=== PATIENT | female | born 1990 | race Caucasian/White ===

== ENCOUNTER 2017-11-06 10:24 | Outpatient (CLI) | payer BC, MEDICAID ==
--- NOTE | 2017-11-06 11:10 | Non Stress Test Report ---
Non Stress Test Datetime Report Generated by CPN: 11/06/2017 11:10 DEMOGRAPHIC EGA NST: 40.0 INDICATION Indication for Study: Ordered by Provider Indication for Study (NST) Other: term VITAL SIGNS Temperature - NST: 98.6 Pulse - NST: 90 RESP - NST: 16 NBPSYS NST: 130 NBPDIA NST: 85 MONITORING Monitor Explained: Monitor Explained; Test Explained; Patient Verbalized Understanding Time on Monitor: 11/06/2017 10:35 Time off Monitor: 11/06/2017 11:02 NST Duration: 27 NST INTERVENTIONS NST Interventions: PO Hydration; Reposition Patient Physician Notified NST: Dr Josué BABY A: [id number] BABY A Movement : Present Contraction Frequency : occassional FHR Baseline : 150 Accelerations : 15X15 Decelerations : None Variability : Moderate 6-25bpm NST Review: Meets Criteria for Reactive NST NST Results: Reactive NST REPORT Report Trigger: Send Report
== END 2017-11-06 11:02 | disposition home or self-care (01) ==
LOC: LC 10:24
PROVIDERS: ATTEND Obstetrics & Gynecology
PROC: 4A1HXCZ Monitoring of Products of Conception, Cardiac Rate, External Approach (ICD-10-PCS; principal; 2017-11-06)
DX: O48.0 Post-term pregnancy (principal); Z3A.40 40 weeks gestation of pregnancy
CPT/HCPCS: 59025

== ENCOUNTER 2017-11-08 01:49 | Inpatient (IN) | payer MEDICAID ==
[2017-11-08 02:07] LABS: APPEARANCE,URINE CLEAR; BILIRUBIN,URINE NEGATIVE (NEGATIVE); COLOR,URINE YELLOW; GLUCOSE, URINE NEGATIVE (NEGATIVE); KETONES,URINE 20 mg/dL (NEGATIVE); LEUKOCYTE ESTERASE,URINE NEGATIVE (NEGATIVE); NITRITE,URINE NEGATIVE (NEGATIVE); PROTEIN,URINE NEGATIVE (NEGATIVE); UROBILINOGEN,URINE NEGATIVE mg/dL (<2.0)
[2017-11-08 02:27] LABS: URINE AMPHETAMINES SCREEN NEGATIVE; URINE BARBITURATES SCREEN NEGATIVE; URINE BENZODIAZEPINES SCREEN NEGATIVE; URINE COCAINE SCREEN NEGATIVE; URINE MARIJUANA (THC) SCREEN NEGATIVE; URINE METHADONE SCREEN NEGATIVE; URINE PHENCYCLIDINE SCREEN NEGATIVE
[2017-11-08] MEDS ORDERED: RINGERS SOLUTION,LACTATED 1,000 ML IV ONE (04:02)
[2017-11-08] MEDS ORDERED: RINGERS SOLUTION,LACTATED 1,000 ML IV PRN (04:04)
[2017-11-08 04:50] LABS: ABSOLUTE LYMPHOCYTES (AUTO) 1.7 10^3/uL (0.5-4.7); ABSOLUTE MONOCYTES (AUTO) 0.7 10^3/uL (0.1-1.4); BASOPHILS % (AUTO) 0.1 % (0-2); EOSINOPHILS % (AUTO) 0.1 % (0-6); HEMOGLOBIN 11.7 g/dL (12.0-15.5); LYMPHOCYTES % (AUTO) 11.1 % (13-45); MEAN CORPUSCULAR HEMOGLOBIN 28.3 pg (27.0-33.4); MEAN CORPUSCULAR HGB CONC 33.4 g/dL (32.0-36.0); MEAN CORPUSCULAR VOLUME 85 fl (80-97); MONOCYTES % (AUTO) 4.4 % (3-13); PLATELET COUNT 247 10^3/uL (150-450); RED BLOOD COUNT 4.13 10^6/uL (3.72-5.28); RED CELL DISTRIBUTION WIDTH 14.3 % (11.5-14.0); SEGMENTED NEUTROPHILS % (AUTO) 84.3 % (42-78); TOTAL CELLS COUNTED % (AUTO) 100 %; WHITE BLOOD COUNT 15.5 10^3/uL (4.0-10.5)
[2017-11-08] MEDS ORDERED: LIDOCAINE 1% INJ-PF (10 MG/ML) 30 ML SDV ONE (05:52)
[2017-11-08] MEDS ORDERED: OXYTOCIN/NORMAL SALINE 20 UNIT/1,000 ML RTUINJ ONE (05:52)
[2017-11-08] MEDS ORDERED: MISOPROSTOL 0.2 MG TABLET ONE (05:52)
--- NOTE | 2017-11-08 06:02 | Admission Physical ---
Datetime Report Generated by CPN: 11/08/2017 06:01 CURRENT ADMISSION Chief Complaint: Uterine Contractions Indication for Induction: Not Applicable; Postterm; Macrosomia Admit Impression : Term, Intrauterine Admit Plan: Admit to Unit; Initiate Labor Protocol Admit Plan- Other: GBS negative Rh Negative ALLERGIES Medication Allergies: No Medication Allergies: No Known Drug Allergies (11/08/2017) Latex: No Latex Allergies Food Allergies: no Environmental Allergies: no OBSTETRICAL HISTORY EDC: 11/06/2017 00:00 : 4 Para: 2 Term: 2 : 0 SAB: 1 IAB: 0 Ectopic: 0 Livin Cesareans: 0 VBACs: 0 Multiple Births: 0 Gestational Diabetes: No Rh Sensitization: No Incompetent Cervix: No TINO: No Infertility: No ART Treatment: No Uterine Anomaly: No IUGR: No Hx Previous C/S: No Macrosomia: No Hx Loss/Stillborn: No PIH: No Hx : No Placenta Previa/Abruption: No Depression/PP Depression: No PTL/PROM: No Post Hemorrhage: No Current Procedures: Ultrasound Obstetrical History Comments: G1: G2: G3: G4: current SEE RECORDS Alcohol: No Marijuana : No Cocaine: No Other Illicit Drugs: No Cigarettes: Never Smoker. 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 Operator Surgery: No Heart Disease: No Hosp/Surgery: No Autoimmune Disorder: No Anesthetic Complications: No Kidney Disease: No Abnormal Pap Smear: Yes Neuro/Epilepsy: No Psychiatric Disorders: No Other Medical Diseases: No Hepatitis/Liver Disease: No Significant Family History: No Varicosities/Phlebitis: No Trauma/Violence : No Thyroid Dysfunction: No Medical History Comments: hpv INFECTIOUS HISTORY Gonorrhea: No Genital Herpes: Yes Chlamydia: No Tuberculosis: No Syphilis: No Hepatitis: No HIV/AIDS Exposure: No Rash or Viral Illness: No HPV: Yes Infectious History Comments: oral hsv PHYSICAL EXAM General: Normal HEENT: Normal Neurologic: Normal Thyroid: Normal Heart: Normal Lungs: Normal Breast: Normal Back: Normal Abdomen: Normal Genitourinary Exam: Normal Extremities: Normal DTRs: Normal Pelvic Type: Adequate VAGINAL EXAM Dilatation: 9 Effacement: 90 Station: -1 Contraction Comments: q 2 MEMBRANES Pooling: Positive Membranes: Ruptured Amniotic Fluid Color: Clear FETUS A EGA: 40.2 Monitoring: External US FHR- Baseline: 145 Variability: Moderate 6-25bpm Accelerations: 15X15 Decelerations: None FHR Category: Category I Estimated Weight (gm): 3900 Presentation: Vertex PLANS FOR LABOR AND DELIVERY Labor and Delivery: None Pain Management: None Feeding Preference: Breast Benefit of Breast Feed Discussed: Yes Circumcision: N/A INFORMED CONSENT Signature: with User ID: [email or web address]
[2017-11-08] MEDS ORDERED: NA PHOS,M-B/NA PHOS,DI-BA (ADULT) 133 ML ENEMA PR PRN (06:31)
[2017-11-08] MEDS ORDERED: DIPH/PERTUSS(ACELL)/TETANUS VAC/PF 0.5 ML SYR (>=10YO) IM PRN (06:31)
[2017-11-08] MEDS ORDERED: DIPHENHYDRAMINE HCL 25 MG CAPSULE PO PRN (06:31)
[2017-11-08] MEDS ORDERED: PROMETHAZINE HCL 25 MG TABLET PO PRN (06:31)
[2017-11-08] MEDS ORDERED: ACETAMINOPHEN WITH CODEINE #3 TABLET PO PRN ×2 (06:31)
[2017-11-08] MEDS ORDERED: PROMETHAZINE HCL 25 MG SUPP.RECT PR PRN (06:31)
[2017-11-08] MEDS ORDERED: MAGNESIUM HYDROXIDE SUSP 30 ML UDCUP PO PRN (06:31)
[2017-11-08] MEDS ORDERED: OXYTOCIN/NORMAL SALINE 20 UNIT/1,000 ML RTUINJ IV PRN (06:31)
[2017-11-08] MEDS ORDERED: BENZOCAINE/MENTHOL AEROSOL SPRAY 56 ML TOP PRN (06:31)
[2017-11-08] MEDS ORDERED: ACETAMINOPHEN 650 MG SUPP.RECT PR PRN (06:31)
[2017-11-08] MEDS ORDERED: MEASLES,MUMPS&RUBELLA VACC/PF 0.5 ML VIAL SUBCUT PRN (06:31)
[2017-11-08] MEDS ORDERED: PSEUDOEPHEDRINE HCL 30 MG TABLET PO PRN (06:31)
[2017-11-08] MEDS ORDERED: PROMETHAZINE HCL INJ 25 MG/1 ML VIAL IV PRN (06:31)
[2017-11-08] MEDS ORDERED: DIBUCAINE 1% OINTMENT 28 GM TP PRN (06:31)
[2017-11-08] MEDS ORDERED: ZOLPIDEM TARTRATE 5 MG TABLET PO PRN (06:31)
[2017-11-08] MEDS ORDERED: GLYCERIN/WITCH HAZEL LEAF 1 EACH MED..PAD TP PRN (06:31)
[2017-11-08 07:14] LABS: ARTERIAL BLOOD BASE EXCESS -2.2 mmol/L; ARTERIAL BLOOD H2CO3 1.05 mmol/L (1.05-1.35); ARTERIAL BLOOD HCO3 21.6 mmol/L (20-26); ARTERIAL BLOOD O2 SATURATION 68.5 % (94-98); ARTERIAL BLOOD PCO2 34.8 mmHg (35-45); ARTERIAL BLOOD PH 7.41 (7.35-7.45); ARTERIAL BLOOD TOTAL CO2 22.7 mmol/L (21-25)
[2017-11-08 07:15] LABS: ARTERIAL BLOOD FIO2 CORD BLOOD; ARTERIAL BLOOD PO2 35.1 mmHg (80-100)
--- NOTE | 2017-11-08 08:31 | Warning Signs in Babies ---
VOD Warning Signs Datetime Report Generated by [facility]: 11/08/2017 08:30 VOD#608 -Warning Signs in Babies: Viewed with Parent(s)/Family (11/06/2017 10:32:Muna Brown RN)
--- NOTE | 2017-11-08 08:31 | Delivery Summary ---
Del Sum A-C Datetime Report Generated by CPN: 11/08/2017 08:30 DELIVERY PERSONNEL DELIVERY PERSONNEL: [id number] Delivery Doctor:: Chris Ren MD Labor and Delivery Nurse:: Cindy Khan RN Labor and Delivery Nurse:: Kristen Traylor RN Manager Law/WILFREDO: Felicitas Ritter CNA Additional Personnel: : Lauren Delacruz RN MATERNAL INFORMATION Delivery Anesthesia: None Medications After Delivery: Pitocin Bolus-Please Comment Meds After Delivery Comment: Pitocin 20 units/1000 mL NS Maternal Complications: None LABOR SUMMARY EDC: 11/06/2017 00:00 No. Babies in Womb: 1 Attempted: No Labor Anesthesia: None LABOR INFORMATION Reason for Induction: Not Applicable Onset of Labor: 11/08/2017 02:58 Oxytocin: N/A Group B Beta Strep: neg Antibiotics # of Doses: 0 Antibiotics Time of Last Dose: n/a Steroids Given: None Reason Steroids Not Administered: Not Applicable MEMBRANES Membranes Rupture Method: Artificial Amniotic Fluid Color: Clear Amniotic Fluid Amount: Small Amniotic Fluid Odor: Normal STAGES OF LABOR Stage 3 hr: 0 Stage 3 min: 4 Total Time in Labor hr: 3 Total Time in Labor min: 27 VAGINAL DELIVERY Episiotomy: None Laceration #1: None Laceration Extension #1: N/A Laceration Repair: Not Applicable Sponge Count Correct: Yes; Vaginal Sweep Performed Sharps Count Correct: Yes CSECTION DELIVERY Primary Indication: N/A Secondary Indication: N/A CSection Incidence: N/A Labor: N/A Elective: N/A CSection Incision: N/A BABY A INFORMATION Delivery Date/Time: 11/08/2017 06:21 Method of Delivery: Vaginal Born in Route : No : N/A Forceps: N/A Vacuum Extraction: N/A Shoulder Dystocia : No PRESENTATION/POSITION BABY A Presentation: Cephalic Cephalic Presentation: Vertex Vertex Position: Left Occipital Anterior Breech Presentation: N/A PLACENTA INFORMATION BABY A Placenta Delivery Time : 11/08/2017 06:25 Placenta Method of Delivery: Spontaneous Placenta Status: Delivered SCORES BABY A Heart Rate 1 min: >100 bpm Resp Effort 1 min: Good Cry Reflex Irritability 1 min: Cough or Sneeze or Pulls Away Muscle Tone 1 min: Active Motion Color 1 min: Body [place], Extremities Blue Resuscitation Effort 1 min: Tactile Stimulation SCORE 1 MIN: 9 Heart Rate 5 min: >100 bpm Resp Effort 5 min: Good Cry Reflex Irritability 5 min: Cough or Sneeze or Pulls Away Muscle Tone 5 min: Active Motion Color 5 min: Body [place], Extremities Blue Resuscitation Effort 5 min: Tactile Stimulation SCORE 5 MIN: 9 INFANT INFORMATION BABY A Gestational Age at Delivery: 40.2 Gestational Status: Full Term- 39- 40.6 Weeks Infant Outcome : Liveborn Condition : Stable Infant Sex: Female IDENTIFICATION BABY A Infant Verification Date/Time: 11/08/2017 06:30 ID Band Number: [id number] Mother's Name Verified: Yes RN Verifying Infant: KKirk Delacruz, RN Additional Verifying Personnel: Marshall Butler RN WEIGHT/LENGTH BABY A Birthweight (gm): 3870 Infant Weight (lb): 8 Weight (oz): 9 Length (in): 19.50 Length (cm): 49.53 CORD INFORMATION BABY A No. Cord Vessels: 3 Nuchal Cord : N/A Cord Blood Taken: Yes-For Eval (Mom's Blood Type - or O+) Suction: Mouth; Nose ASSESSMENT BABY A Complications: None Physical Findings at Delivery: Within Normal Limits Physical Findings- Other: See full nursery assessment Infant Respirations: Appears Normal Skin to Skin: Yes Skin to Skin Time (min): nursery at bedside Library Media Specialist/ALS Called : No Care By: Brian Traylor RN Transferred To: Remains with Mother BABY B INFORMATION : N/A SIGNATURES Signature: with User ID: [email or web address]
[2017-11-08] MEDS: SENNOSIDES/DOCUSATE 8.6-50 MG 1 EACH TABLET PO SCH (09:50)
[2017-11-08] MEDS: DOCUSATE SODIUM 100 MG CAPSULE PO SCH ×2 (09:51→18:08)
[2017-11-08] MEDS: FAMOTIDINE 20 MG TABLET PO SCH ×2 (09:51→23:24)
[2017-11-08] MEDS: FERROUS SULFATE 325 MG TABLET PO SCH ×2 (09:51→18:08)
[2017-11-08] MEDS: PRENATAL VITAMIN W DHA CAPSULE PO SCH (09:51)
[2017-11-08] MEDS ORDERED: (PENDING PHARMACY ID) (Prenatal No122/Iron/Folic Acid [Prenatal Multi Tablet] 1 TAB) PO SCH (10:00)
[2017-11-08] MEDS: IBUPROFEN 800 MG TABLET PO SCH ×2 (13:34→23:23)
[2017-11-09] MEDS: IBUPROFEN 800 MG TABLET PO SCH ×3 (05:49→21:11)
[2017-11-09 07:27] LABS: HEMATOCRIT 32.6 % (36.0-47.0); HEMOGLOBIN 10.9 g/dL (12.0-15.5); MEAN CORPUSCULAR HEMOGLOBIN 28.5 pg (27.0-33.4); MEAN CORPUSCULAR HGB CONC 33.6 g/dL (32.0-36.0); MEAN CORPUSCULAR VOLUME 85 fl (80-97); PLATELET COUNT 203 10^3/uL (150-450); RED BLOOD COUNT 3.83 10^6/uL (3.72-5.28); RED CELL DISTRIBUTION WIDTH 14.4 % (11.5-14.0); WHITE BLOOD COUNT 15.2 10^3/uL (4.0-10.5)
[2017-11-09] MEDS: DOCUSATE SODIUM 100 MG CAPSULE PO SCH ×2 (09:18→17:03)
[2017-11-09] MEDS: PRENATAL VITAMIN W DHA CAPSULE PO SCH (09:18)
[2017-11-09] MEDS: SENNOSIDES/DOCUSATE 8.6-50 MG 1 EACH TABLET PO SCH (09:19)
[2017-11-09] MEDS: FAMOTIDINE 20 MG TABLET PO SCH ×2 (09:19→21:11)
[2017-11-09] MEDS: FERROUS SULFATE 325 MG TABLET PO SCH ×2 (09:19→17:02)
--- NOTE | 2017-11-09 09:24 | PDOC PROGRESS REPORT ---
Subjective-OB Progress Note for:: 11/09/17 Subjective: Day #1 s/p voiding without difficultly, lochia is stable, pain well controlled, denies concerns, bonding well with baby. Physical Exam (OB) Vital Signs: Temp Pulse Resp BP Pulse Ox 98.4 F 59 L 16 130/71 H 100 11/09/17 07:57 11/09/17 07:57 11/09/17 07:57 11/09/17 07:57 11/09/17 07:57 Intake & Output 11/08/17 11/09/17 11/10/17 06:59 06:59 06:59 Weight 94 kg - Lochia Lochia Amount: Scant < 10 ml Lochia Color: Rubra/Red - Abdomen Description: Firm, Round Hernia Present: No Fundal Description: Firm, Midline Fundal Height: u/u - u/2 Objective-Diagnostic Laboratory: 11/09/17 07:13 11/09/17 07:13 WBC 15.2 H RBC 3.83 Hgb 10.9 L Hct 32.6 L MCV 85 MCH 28.5 MCHC 33.6 RDW 14.4 H Plt Count 203 Assessment and Plan(PN) - Assessment and Plan (1) Qualifiers: Weeks of gestation: 40 weeks Qualified Code(s): Z3A.40 - 40 weeks gestation of Is this a current diagnosis for this admission?: Yes Plan: delivered (2) Vaginal delivery Is this a current diagnosis for this admission?: Yes Plan: routine pp care (3) Acute blood loss anemia Is this a current diagnosis for this admission?: Yes Plan: ferrous sulfate increase dietary iron - Time Spent with Patient Time with patient: Less than 15 minutes Critical Time spent with patient: Less than 15 minutes Medications reviewed and adjusted accordingly: Yes - Disposition Anticipated Discharge: Home Within: within 24 hours
[2017-11-10] MEDS: IBUPROFEN 800 MG TABLET PO SCH (05:36)
[2017-11-10] MEDS: PRENATAL VITAMIN W DHA CAPSULE PO SCH (10:03)
[2017-11-10] MEDS: FERROUS SULFATE 325 MG TABLET PO SCH (10:04)
[2017-11-10] MEDS: DOCUSATE SODIUM 100 MG CAPSULE PO SCH (10:04)
[2017-11-10] MEDS: SENNOSIDES/DOCUSATE 8.6-50 MG 1 EACH TABLET PO SCH (10:04)
[2017-11-10] MEDS: FAMOTIDINE 20 MG TABLET PO SCH (10:04)
--- NOTE | 2017-11-10 11:29 | PDOC DISCHARGE SUMMARY ---
Final Diagnosis Discharge Date: 11/10/17 - Final Diagnosis (1) Acute blood loss anemia Is this a current diagnosis for this admission?: Yes (2) Is this a current diagnosis for this admission?: Yes (3) Vaginal delivery Is this a current diagnosis for this admission?: Yes Discharge Data - Discharge Medication Prescriptions: Ibuprofen [Motrin 800 mg Tablet] 800 mg PO Q8HP PRN #30 tablet PRN Reason: Abdominal Cramping Docusate Sodium [Colace 100 mg Capsule] 100 mg PO BID #60 capsule Ferrous Sulfate [Feosol 325 mg Tablet] 325 mg PO BID #60 tablet Home Medications: No122/Iron/Folic Acid [ Multi Tablet] 1 tab PO DAILY 11/06/17 Docusate Sodium [Colace 100 mg Capsule] 100 mg PO BID #60 capsule 11/10/17 Ferrous Sulfate [Feosol 325 mg Tablet] 325 mg PO BID #60 tablet 11/10/17 Ibuprofen [Motrin 800 mg Tablet] 800 mg PO Q8HP PRN #30 tablet 11/10/17 Reason(s) for Admission: Onset of Labor Procedures: NST, Ultrasound Intrapartum Procedure(s): Spontaneous Vaginal Delivery - Diagnosis Test Laboratory: Temp Pulse Resp BP Pulse Ox 97.9 F 76 16 121/64 100 11/10/17 07:54 11/10/17 07:54 11/10/17 07:54 11/10/17 07:54 11/10/17 07:54 11/08/17 11/08/17 11/09/17 01:55 04:26 07:13 RBC 4.13 3.83 Hgb 11.7 L 10.9 L Hct 35.0 L 32.6 L Urine Opiates Screen NEGATIVE - Discharge information/Instructions Discharge Activity: Activity As Tolerated, Balance Activity w/Rest, No Lifting Over 10 Pounds, No Lifting/Push/Pulling, Pelvic Rest, No tub bath, Walk Frequently Discharge Diet: As Tolerated, Regular Disposition: HOME, SELF-CARE Follow up with: [facility] in: 4, Weeks
[2017-11-10 11:38] VITALS: BP 125/70
== END 2017-11-10 13:35 | disposition home or self-care (01) | DRG 774 ==
LOC: LC 01:49 → LR 04:08 → 2S 08:50
PROVIDERS: ADMIT Obstetrics & Gynecology; ATTEND Obstetrics & Gynecology
PROC: 10E0XZZ Delivery of Products of Conception, External Approach (ICD-10-PCS; principal; 2017-11-08)
PROC: 4A1HXCZ Monitoring of Products of Conception, Cardiac Rate, External Approach (ICD-10-PCS; 2017-11-08)
PROC: 10907ZC Drainage of Amniotic Fluid, Therapeutic from Products of Conception, Via Natural or Artificial Opening (ICD-10-PCS; 2017-11-08)
DX: O36.63X0 Maternal care for excessive fetal growth, third trimester, not applicable or unspecified (principal); O98.52 Other viral diseases complicating childbirth; D62 Acute posthemorrhagic anemia; O99.02 Anemia complicating childbirth; O48.0 Post-term pregnancy; B00.9 Herpesviral infection, unspecified; Z3A.40 40 weeks gestation of pregnancy; Z37.0 Single live birth
CPT/HCPCS: 36415; 80307; 81005; 82803; 85025; 85027; 85461; 86592; 86850; 86900; 86901; J2590; J2790; J3490

== ENCOUNTER 2018-08-07 16:54 | Emergency (ER) | payer BC, MEDICAID ==
[2018-08-07 17:00] VITALS: BP 126/72
--- NOTE | 2018-08-07 17:30 | ER Document Report ---
ED General - General Chief Complaint: Breast Lump Stated Complaint: BREAST PAIN Time Seen by Provider: 08/07/18 17:08 Primary Care [facility]: [facility] [[facility] - Follow up as needed AKHIL BENITO MD [ELLI SAMAYOA] - Follow up as needed Notes: Patient is a 28-year-old female that presents to the emergency department for chief complaint of Left breast pain left breast pain. Patient states that she has been pumping, breastmilk, she is approximately 8 months . She states she noticed a lump underneath her left breast that was tender, and thought it was a blocked milk duct, and tried massage and different techniques to try to make it better, but is not improving, then she noticed some redness, she did try heating pad so she is not sure if that is what it is from. But she does report having a fever last night of 103 F and was concerned about that as well, she did not have a fever today. She currently rates her pain as a 3 out of 10, only worse with palpation of that area. She has continued to breast- feed. Denies any other complaints at this time. Past Medical History: Denies chronic medical conditions Past Surgical History: Denies surgical history Social History: Denies tobacco, alcohol or drug use. Family History: Reviewed and noncontributory for presenting illness Allergies: Reviewed, see documented allergy list. REVIEW OF SYSTEMS: Other than noted above, the 12 point review of systems was reviewed with the patient and were negative, all pertinent findings are included in the HPI. PHYSICAL EXAMINATION: Vital signs reviewed, nursing noted reviewed. GENERAL: Well-appearing, well-nourished and in no acute distress. HEAD: Atraumatic, normocephalic. EYES: Eyes appear normal, sclera anicteric, conjunctiva are normal. ENT: Moist mucous membranes. NECK: Normal range of motion, supple without lymphadenopathy LUNGS: Breath sounds clear to auscultation bilaterally and equal. No wheezes rales or rhonchi. HEART: Regular rate and rhythm without murmurs Breast exam: Exam was performed with dipping machine operator in the room, DARIA Mohamud, on the inferior portion of the left breast, there is a palpable nodule approximately 2 x 2 cm, mildly tender to palpate, there is mild erythema to the area, the area on the rest of the breast tissue appear normal, and nontender to palpate. EXTREMITIES: Nontender, good range of motion, no pitting or edema. NEUROLOGICAL: No focal neurological deficits. Moves all extremities spontaneously Motor and sensory grossly intact on exam. PSYCH: Normal mood, normal affect. SKIN: Warm, Dry, normal turgor, no rashes or lesions noted on exposed skin TRAVEL OUTSIDE OF THE [place] IN LAST 30 DAYS: No - Related Data Allergies/Adverse Reactions: No Known Drug Allergies Allergy (Verified 08/07/18 17:14) Past Medical History - Social History Smoking Status: Never Smoker Chew tobacco use (# tins/day): No Frequency of alcohol use: None Drug Abuse: None Family History: Arthritis, Hypertension, Malignancy Patient has suicidal ideation: No Patient has homicidal ideation: No - Past Medical History Cardiac Medical History: Denies: Hx Coronary Artery Disease, Hx Heart Attack, Hx Hypertension Pulmonary Medical History: Denies: Hx Asthma, Hx Bronchitis, Hx COPD, Hx Pneumonia Neurological Medical History: Denies: Hx Cerebrovascular Accident, Hx Seizures Renal/ Medical History: Denies: Hx Peritoneal Dialysis GI Medical History: Reports: Hx Gastroesophageal Reflux Disease Musculoskeletal Medical History: Denies Hx Arthritis - Immunizations Immunizations up to date: Yes Hx Diphtheria, Pertussis, Tetanus Vaccination: Yes Physical Exam - Vital signs Vitals: Temp Pulse Resp BP Pulse Ox 98.1 F 90 16 126/72 H 98 08/07/18 16:58 08/07/18 16:58 08/07/18 16:58 08/07/18 16:58 08/07/18 16:58 Course - Re-evaluation Re-evalutation: Patient seen and examined, vital signs reviewed, patient appears well on exam, she was afebrile at this visit, there is mild erythema on her breast exam with a tender lump underneath the left breast, most likely a clogged milk duct, advised her to continue breast-feeding, to help resolve this, there was some redness, and given that she had fever, will prescribe her Keflex for 7 days and have her 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 Patient discharged home in stable condition. - Vital Signs Vital signs: Temp Pulse Resp BP Pulse Ox 98.1 F 90 16 126/72 H 98 08/07/18 16:58 08/07/18 16:58 08/07/18 16:58 08/07/18 16:58 08/07/18 16:58 Discharge - Discharge Clinical Impression: Mastitis Condition: Stable Disposition: HOME, SELF-CARE Instructions: Mastitis ([facility]) Prescriptions: RX: Cephalexin Monohydrate [Keflex 500 mg Capsule] 500 mg PO Q8H #21 capsule Referrals: AKHIL BENITO MD [[facility]] - Follow up as needed [facility] [Provider Group] - Follow up as needed
== END 2018-08-07 17:28 | disposition home or self-care (01) ==
LOC: ER 16:54
DX: N61.0 Mastitis without abscess (principal); N64.4 Mastodynia
CPT/HCPCS: 99283

== ENCOUNTER → 2018-08-11 | Outpatient (CLI) | payer BC ==
--- NOTE | 2018-08-11 09:34 | WOMENS IMAGING REPORT ---
EXAM DESCRIPTION: U/S BREAST UNILATERAL, COMPL COMPLETED DATE/TIME: 08/11/2018 8:26 am REASON FOR STUDY: N63.0 UNSPECIFIED LUMP IN UNSPECIFIED BREAST N63.0 UNSPECIFIED LUMP IN UNSPECIFIE D BREAST COMPARISON: None. TECHNIQUE: Real-time and static grayscale imaging performed of the left breast targeted to the area of clinical/mammographic concern. Selected color Doppler images recorded. LIMITATIONS: None. FINDINGS: MASS: No mass identified. Normal glandular tissue. OTHER: No other significant finding. IMPRESSION: No suspicious findings detected by ultrasound. BIRAD: 1 Negative. RECOMMENDATION: RECOMMENDED FOLLOW-UP: Follow-up as clinically indicated. COMMENT: The [employer] (ACR) has developed recommendations for screening MRI of the breasts in certain patient populations, to be used in conjunction with mammography. Breast MRI s urveillance may be appropriate for women with more than 20% lifetime risk of developing breast cancer as determined by genetic testing, significant family history of the disease, or history of mantle r adiation for Hodgkins Disease. ACR Practice Guidelines 2008. TECHNICAL DOCUMENTATION: JOB ID: [id number] [employer]- All Rights Reserved Reading location - IP/workstation name: [email or web address]
== END ==
LOC: WI 07:52
PROVIDERS: ATTEND Obstetrics & Gynecology Gynecology
DX: N60.02 Solitary cyst of left breast (principal)
CPT/HCPCS: 76641

== ENCOUNTER 2018-11-07 18:54 | Emergency (ER) | payer BC ==
[2018-11-07] MEDS ORDERED: LIDOCAINE 1% INJ-PF (10 MG/ML) 30 ML SDV INJ ONE (21:05)
--- NOTE | 2018-11-07 21:08 | ER Document Report ---
ED Wound - General Chief Complaint: Laceration Stated Complaint: HAND INJURY Time Seen by Provider: 11/07/18 20:50 Primary Care Provider: GERARD LAWSON MD [ACTIVE STAFF] - Follow up as needed Mode of Arrival: Ambulatory Information source: Patient TRAVEL OUTSIDE OF THE [place] IN LAST 30 DAYS: No - HPI Patient complains to provider of: Laceration Notes: Patient here with complaints of laceration of the palm of the left hand. She states she was doing dishes when she excellently stabbed her left hand with a knife. She is noted to have a small laceration. Tetanus is up-to-date. She denies any numbness, Juanito, weakness. She complains of some pain with hand movement. No fevers. No redness or drainage. No chest pain or shortness of breath. No nausea, vomiting, diarrhea. No other injury, no other complaints. Pain is mild to moderate, constant, worse with flexion of the fingers, better with rest. - Related Data Allergies/Adverse Reactions: No Known Drug Allergies Allergy (Verified 11/07/18 19:02) Past Medical History - Social History Smoking Status: Unknown if Ever Smoked Family History: Arthritis, Hypertension, Malignancy - Past Medical History Cardiac Medical History: Denies: Hx Coronary Artery Disease, Hx Heart Attack, Hx Hypertension Pulmonary Medical History: Denies: Hx Asthma, Hx Bronchitis, Hx COPD, Hx Pneumonia Neurological Medical History: Denies: Hx Cerebrovascular Accident, Hx Seizures Renal/ Medical History: Denies: Hx Peritoneal Dialysis GI Medical History: Reports: Hx Gastroesophageal Reflux Disease Musculoskeletal Medical History: Denies Hx Arthritis - Immunizations Immunizations up to date: Yes Hx Diphtheria, Pertussis, Tetanus Vaccination: Yes Review of Systems - Review of Systems -: Yes All other systems reviewed and negative Physical Exam - Vital signs Vitals: Temp Pulse Resp BP Pulse Ox 98.4 F 69 18 108/73 98 11/07/18 19:21 11/07/18 19:21 11/07/18 19:21 11/07/18 19:21 11/07/18 19:21 - Notes Notes: GENERAL: alert, cooperative, nontoxic, no distress. HEAD: normocephalic, atraumatic EYES: conjunctiva pink without discharge, no external redness or swelling. EARS: no external swelling, no external redness NOSE: atraumatic, no external swelling MOUTH/THROAT: mucous membranes moist and pink NECK: soft, supple, full range of motion, no meningismus. CHEST: no distress, lungs clear and equal throughout. No wheezing, rales, rhonchi. CARDIAC: regular rate and rhythm, no murmur, normal capillary refill, normal pulses. BACK: full range of motion, no CVA tenderness. EXTREMITIES: full range of motion of all extremities. No redness, no swelling. 2 cm laceration to the palm of the left hand. No active bleeding. No foreign body. No surrounding redness. Normal pulse, sensation and movement distally. Normal cap refill. Normal pulses. NEURO: alert and oriented 3, no focal deficits, full range of motion of all extremities. PYSCH: appropriate mood, affect. Patient is cooperative. SKIN: pink, warm, dry, no rash. Course - Re-evaluation Re-evalutation: 11/07/18 21:59 Patient nontoxic-appearing stable vitals. Patient with complaints of laceration to the left palm. She excellently stabbed herself with a knife while cleaning dishes. She noted to have a small 1 similar laceration of the palm of the left hand. Neurovascularly she is intact. There is no active bleeding. There is no foreign body. She is full range of motion of the hand. Laceration was repaired. Patient will be discharged home. She is given wound care instructions. Follow-up in 10 days for suture removal, sooner if worsening pain, fever, redness, drainage, any further concerns. The patient's emergency department workup and current diagnosis were explained to the patient and or family. Follow-up instructions were provided. Medications if prescribed were discussed. Instructions for when to return to the emergency department including specific worrisome symptoms were discussed with the patient and/or family. - Vital Signs Vital signs: Temp Pulse Resp BP Pulse Ox 98.4 F 69 18 108/73 98 11/07/18 19:21 11/07/18 19:21 11/07/18 19:21 11/07/18 19:21 11/07/18 19:21 Procedures - Laceration/Wound Repair Left hand Wound length (cm): 1 Wound's Depth, Shape: Superficial, Linear Laceration pre-procedure: Sterile PPE donned, Sterile drapes applied, Shur-Clens applied Anesthetic type: 1% Lidocaine Wound explored: Clean, No foreign body removed Irrigated w/ Saline (mLs): 50 Wound Repaired With: Sutures Suture Size/Type: 4:0, Ethilon Number of Sutures: 3 Layer Closure?: No Post-procedure wound care: Sterile dressing applied Post-procedure NV exam normal: Yes Complications: No Discharge - Discharge Clinical Impression: Laceration of left palm Qualifiers: Encounter type: initial encounter Qualified Code(s): S61.412A - Laceration without foreign body of left hand, initial encounter Condition: Stable Disposition: HOME, SELF-CARE Instructions: Antibiotic Ointment Protection ([facility]), Laceration Care ([facility]), Soap Cleansing ([facility]) Additional Instructions: Clean wound twice a day with soap and water. Apply thin layer of antibiotic ointment. Follow-up in 10 days for suture removal, sooner for worsening pain, fever, redness, drainage, any further concerns. Referrals: GERARD LAWSON MD [ACTIVE STAFF] - Follow up as needed
[2018-11-07 22:14] VITALS: BP 110/70
== END 2018-11-07 22:11 | disposition home or self-care (01) ==
LOC: ER 18:54
DX: S61.412A Laceration without foreign body of left hand, initial encounter (principal); W26.0XXA Contact with knife, initial encounter; Y93.G1 Activity, food preparation and clean up
CPT/HCPCS: 99282; 12001; J3490

== ENCOUNTER → 2018-11-17 | Outpatient (CLI) | payer BC ==
--- NOTE | 2018-11-17 19:19 | XCELERA REPORT ---
[address] [address] Transthoracic Echocardiogram Report Name: KOKI ANAYA Age: 28 yrs Gender: Female : 1990 Patient Status: Outpatient Patient Location: [facility] Study Date: 11/17/2018 11:20 AM Height: 66 in Weight: 181 lb BSA: 1.9 m2 Reason For Study: MURMUR Ordering Physician: RAFAT NO Performed By: Yi Laughlin Interpretation Summary Poor study with poor endocardial definition in apical views. Unable to assess all LV segments. No contrast use to enable more accurate quantitation of this pt's LVEF. No valvular abnormality seen to explain pt's murmur. No LVH or ANTONIETTA to explain murmur. No ASD seen. No pulm hypertension derived from doppler on TR jet and normal RA size. RV function appears to be normal by TAPSEvisually,TAPSE was not measured by certified appliance service technician. LVEF is grossly normal. MMode/2D Measurements & Calculations RVDd: 3.0 cm LVIDd: 5.1 cm FS: 38.8 % Ao root diam: 2.7 cm IVSd: 0.79 cm LVIDs: 3.1 cm EDV(Teich): 124.2 ml LVPWd: 1.2 cm ESV(Teich): 38.6 ml Ao root area: 5.7 cm2 LA dimension: 2.8 cm EF(Teich): 68.9 % Doppler Measurements & Calculations MV E max israel: MV dec time: Ao V2 max: LV V1 max P.5 cm/sec 0.19 sec 108.6 cm/sec 2.9 mmHg MV A max israel: Ao max P.7 mmHg LV V1 max: 47.4 cm/sec 85.4 cm/sec MV E/A: 1.6 PA V2 max: TR max israel: 81.9 cm/sec 182.3 cm/sec PA max P.7 mmHg TR max P.3 mmHg Left Ventricle The left ventricle is normal in size. There is normal left ventricular wall thickness. The left ventricular ejection fraction is within normal limits. UNABLE TO SEE ENDOCARDIAL DEFINITION IN APICAL 4 CHAMBER AND APICAL 2 CHAMBER VIEWS TO ASSESS LVEF, OVERALL APPEARS NORMAL. Doppler measurements suggest normal left ventricular diastolic function. Not all wall segments were well visualized. Regional wall motion abnormalities cannot be excluded due to limited visualization. There is no thrombus. Right Ventricle The right ventricle is normal size. The right ventricular systolic function is normal. Atria The right atrium is normal. The left atrial size is normal. The interatrial septum is difficult to see, but appears to be grossly normal. Mitral Valve The mitral valve is normal in structure and function. There is no evidence of mitral valve prolapse. There is no mitral valve stenosis. There is a trace amount of mitral regurgitation. Aortic Valve The aortic valve is trileaflet. The aortic valve opens well. The aortic valve is normal in structure and functions normally. There is no aortic valvular vegetation. There is no aortic valve stenosis. No aortic regurgitation is present. Tricuspid Valve The tricuspid valve is not well visualized, but is grossly normal. There is a mild amount of tricuspid regurgitation. Best estimated RVSP is approximately 16 mm/Hg. Pulmonic Valve The pulmonic valve is not well visualized. There is a trace or physiologic amount of pulmonic regurgitation. Great Vessels The aortic root is normal size. Effusions There is no pericardial effusion. I WMSI = 1.00 % Normal = 100 Segments Size X - Cannot 1 - Normal 2 - 3 - Akinetic4 - 1-2 small Interpret Hypokinetic Dyskinetic 3-5 moderate 5 - 6-14 large Aneurysmal 15-16 diffuse : ARFAT NO > Negrito Bermudez
== END ==
LOC: SP 10:08
PROVIDERS: ATTEND Family Medicine
DX: R01.1 Cardiac murmur, unspecified (principal)
CPT/HCPCS: 93306

== ENCOUNTER 2019-01-14 09:48 | Day surgery (SDC) | payer BC ==
[~2019-01-14 09:48] MED LIST: PROPOFOL INJ 200 MG/20 ML VIAL IV ONE
--- NOTE | 2019-01-14 11:20 | Operative Report ---
Operative Report DATE OF SURGERY: 01/14/19 Operative Report: The risks benefits and alternatives of the procedure explained to the patient in detail and informed consent is obtained.A GIF Olympus video scope was inserted into the patient's mouth and hypopharynx, the esophagus is identified intubated and insufflated, the scope was then advanced through the esophagus stomach and duodenum ,retroflexion maneuver is done, the esophagus stomach and first and second portions of the duodenum examined. PREOPERATIVE DIAGNOSIS: Gastroesophageal reflux disease history of Clarke's esophagus POSTOPERATIVE DIAGNOSIS: Clarke's esophagus has resolved. Mild residual gastritis status post biopsy OPERATION: EGD with biopsy SURGEON: KONG HUNG ANESTHESIA: LMAC TISSUE REMOVED OR ALTERED: As noted above. COMPLICATIONS: None. ESTIMATED BLOOD LOSS: None. INTRAOPERATIVE FINDINGS: As noted above. PROCEDURE: Patient tolerated the procedure well. No immediate postprocedure complications are noted. Patient is discharged in good condition. Discharge date 01/14/2019. Discharge diet: Regular. Discharge activity: Regular. 2 to 3-week follow-up to discuss findings. Patient is instructed to call the office or proceed to the emergency room should there be any further problems or questions. Wait on the pathology.
[2019-01-14 12:38] VITALS: BP 114/65
== END 2019-01-14 11:19 | disposition home or self-care (01) ==
LOC: END 09:48
PROVIDERS: ATTEND Internal Medicine Gastroenterology
DX: K29.20 Alcoholic gastritis without bleeding (principal); K21.9 Gastro-esophageal reflux disease without esophagitis; Z09 Encounter for follow-up examination after completed treatment for conditions other than malignant neoplasm; Z87.19 Personal history of other diseases of the digestive system; R01.0 Benign and innocent cardiac murmurs; Z79.899 Other long term (current) drug therapy
CPT/HCPCS: 88305 ×2; 00731; J2704; 43239; 731

== ENCOUNTER → 2020-04-18 | Outpatient (CLI) | payer BC, MEDICAID ==
--- NOTE | 2020-04-18 14:40 | WOMENS IMAGING REPORT ---
EXAM DESCRIPTION: U/S BREAST UNILAT LIMITED IMAGES COMPLETED DATE/TIME: 04/18/2020 7:23 am REASON FOR STUDY: N63.0 UNSPECIFIED LUMP IN UNSPECIFIED BREAST N63.0 UNSPECIFIED LUMP IN UNSPECIFIE D BREAST COMPARISON: None. TECHNIQUE: Real-time and static grayscale imaging performed of the left breast targeted to the area of clinical/mammographic concern. Selected color Doppler images recorded. LIMITATIONS: None. FINDINGS: MASS: No mass identified. Normal glandular tissue. OTHER: No other significant finding. IMPRESSION: No suspicious findings detected by ultrasound. BIRAD: 0 Incomplete: Needs additional imaging evaluation and/or prior mammograms for comparison. RECOMMENDATION: RECOMMENDED FOLLOW-UP: Bilateral diagnostic mammogram. COMMENT: The [employer] ([employer]) has developed recommendations for screening MRI of the breasts in certain patient populations, to be used in conjunction with mammography. Breast MRI s urveillance may be appropriate for women with more than 20% lifetime risk of developing breast cancer as determined by genetic testing, significant family history of the disease, or history of mantle r adiation for Hodgkins Disease. ACR Practice Guidelines 2008. TECHNICAL DOCUMENTATION: JOB ID: [id number] 2010 [employer]- All Rights Reserved Reading location - IP/workstation name: [email or web address]
== END ==
LOC: WI 06:47
PROVIDERS: ATTEND Nurse Practitioner Family
DX: N63.0 Unspecified lump in unspecified breast (principal)
CPT/HCPCS: 76642